=== PATIENT | female | born 1940 | race Caucasian/White ===

== ENCOUNTER → 2017-05-09 | Outpatient (CLI) | payer MEDICARE, BC | END | disposition home or self-care (01) | LOC: RAD 13:16 | PROVIDERS: ATTEND Internal Medicine | DX: R07.9 Chest pain, unspecified (principal); R05 Cough; E03.9 Hypothyroidism, unspecified; B35.8 Other dermatophytoses; E78.2 Mixed hyperlipidemia; K51.80 Other ulcerative colitis without complications; L30.9 Dermatitis, unspecified; R21 Rash and other nonspecific skin eruption | CPT/HCPCS: 71020 ==

== ENCOUNTER → 2020-04-01 | Outpatient (CLI) | payer MEDICARE, BC ==
[~2020-04-01] MED LIST: ASPI81TA45 PO; ATOR10TA PO; CALC-37 PO; CLOP75TA52 PO; FOLI400T3 PO; LEVO125T85 PO; SUMA50TA3 PO
== END | disposition home or self-care (01) ==
LOC: STAR 15:02
PROVIDERS: ATTEND Orthopaedic Surgery
DX: Z01.818 Encounter for other preprocedural examination (principal); M25.561 Pain in right knee; I44.0 Atrioventricular block, first degree; Z20.828 Contact with and (suspected) exposure to other viral communicable diseases
CPT/HCPCS: 36415; 87635; 93005

== ENCOUNTER 2020-04-06 05:53 | Day surgery (SDC) | payer MEDICARE, BC ==
[~2020-04-06] VITALS: Ht 175.3 cm; Wt 65.0 kg
[2020-04-06] MEDS ORDERED: EPINEPHRINE 1 MG/ML, 1ML ONE (06:24)
[2020-04-06] MEDS ORDERED: BUPIVACAINE/PF 0.25% ONE ×2 (06:24→06:49)
[2020-04-06] MEDS ORDERED: LIDOCAINE/PF 1%, 30ML ONE (06:24)
[2020-04-06] MEDS ORDERED: FENTANYL PF 250 MCG/5ML ONE (06:47)
[2020-04-06] MEDS ORDERED: MIDAZOLAM 1 MG/ML, 2ML ONE (06:48)
[2020-04-06] MEDS ORDERED: LACTATED RINGERS 1,000 ML IV SCH (07:00)
[2020-04-06] MEDS ORDERED: CHLORHEXIDINE 15 ML UDC MM ONE (07:00)
[2020-04-06] MEDS ORDERED: ONDANSETRON 2MG/ML, 2ML ONE (07:13)
[2020-04-06] MEDS ORDERED: DEXAMETHASONE 4 MG/ML, 1ML ONE (07:13)
[2020-04-06] MEDS ORDERED: NEOSTIGMINE 1 MG/ML, 10ML ONE (07:13)
[2020-04-06] MEDS ORDERED: PROPOFOL 10 MG/ML, 20ML ONE (07:13)
[2020-04-06] MEDS ORDERED: ROCURONIUM 10 MG/ML,10ML ONE (07:13)
[2020-04-06] MEDS ORDERED: CEFAZOLIN 1,000 MG ONE (07:13)
[2020-04-06] MEDS ORDERED: GLYCOPYRROLATE 0.2MG/1ML, 5ML ONE (07:13)
[2020-04-06] MEDS ORDERED: ACETAMINOPHEN 325 MG TABLET PO PRN ×2 (08:00→08:30)
[2020-04-06] MEDS ORDERED: OXYcodone 5 MG/5 ML ORAL.SOL UDC PO PRN (08:30)
[2020-04-06] MEDS ORDERED: SUMATRIPTAN 50 MG TABLET PO PRN (08:30)
[2020-04-06] MEDS ORDERED: HALOPERIDOL 5 MG/ML IV PRN (08:30)
[2020-04-06] MEDS ORDERED: METHOCARBAMOL 1,000 MG in DEXTROSE 5% 100 ML IV PRN (08:30)
[2020-04-06] MEDS ORDERED: HYDROmorphone 1 MG/ML, 1ML INJ IVPush PRN (08:30)
[2020-04-06] MEDS ORDERED: PROMETHAZINE 25 MG/ML, 1ML IVPush PRN (08:30)
[2020-04-06] MEDS ORDERED: FENTANYL PF 100 MCG/2ML IV PRN (08:30)
[2020-04-06] MEDS ORDERED: EPHEDRINE 50 MG/ML, 1ML IVPush PRN (08:30)
[2020-04-06] MEDS ORDERED: hydrALAzine 20 MG/ML, 1ML IV PRN (08:30)
[2020-04-06] MEDS ORDERED: LABETALOL 5MG/ML, 20ML IV PRN (08:30)
[2020-04-06] MEDS ORDERED: KETOROLAC 30 MG/1 ML IV PRN (08:30)
[2020-04-06] MEDS ORDERED: SUGAMMADEX 200 MG/2 ML IVPush ONE (08:48)
[2020-04-06] MEDS ORDERED: LEVOTHYROXINE 125 MCG TABLET PO SCH (09:00)
[2020-04-06] MEDS ORDERED: CLOPIDOGREL 75 MG TABLET PO SCH (09:00)
[2020-04-06] MEDS ORDERED: ASPIRIN 81 MG TABLET EC PO SCH (09:00)
[2020-04-06] MEDS ORDERED: ATORVASTATIN 10 MG TABLET PO SCH (21:00)
== END 2020-04-06 11:40 | disposition home or self-care (01) ==
LOC: OUT 05:53
PROVIDERS: ATTEND Orthopaedic Surgery
DX: S83.271A Complex tear of lateral meniscus, current injury, right knee, initial encounter (principal); M94.261 Chondromalacia, right knee; M65.861 Other synovitis and tenosynovitis, right lower leg; M19.90 Unspecified osteoarthritis, unspecified site; Z79.02 Long term (current) use of antithrombotics/antiplatelets; Z79.82 Long term (current) use of aspirin; Z79.899 Other long term (current) drug therapy; Z90.710 Acquired absence of both cervix and uterus; Z90.722 Acquired absence of ovaries, bilateral; Z90.89 Acquired absence of other organs; W19.XXXA Unspecified fall, initial encounter; Y93.89 Activity, other specified; Y92.89 Other specified places as the place of occurrence of the external cause; Y99.8 Other external cause status
CPT/HCPCS: 29881; J0171; J2250; J3010; J7120; J0690; J1100; J2405; J2704; J2710